=== PATIENT | male | born 1990 ===

== ENCOUNTER 2020-10-21 09:18 | Outpatient (CLI) | payer OTHER | END 2020-10-21 09:19 | disposition home or self-care (01) | LOC: BICULT 09:18 | PROVIDERS: ATTEND Family Medicine | DX: R10.11 Right upper quadrant pain (principal); K80.10 Calculus of gallbladder with chronic cholecystitis without obstruction; K82.8 Other specified diseases of gallbladder | CPT/HCPCS: 76705 ==

== ENCOUNTER 2021-01-19 09:55 | Day surgery (SDC) | payer OTHER ==
[2021-01-15 13:41] VITALS: BMI 31.4
[~2021-01-19 09:55] MED LIST: Acetaminophen 500 MG TAB ONE
[2021-01-19] MEDS ORDERED: Ketorolac Tromethamine 30 MG/ML VIAL ONE (10:11)
[2021-01-19] MEDS ORDERED: ceFAZolin 2 GM/DEX 5% 100 ML BAG ONE (10:11)
[2021-01-19] MEDS ORDERED: Midazolam HCl 2 mg/2 ml Vial ONE (12:20)
[2021-01-19] MEDS ORDERED: Lidocaine 1% w/Epinephrine 1:100K 20 ML VIAL ONE (13:32)
[2021-01-19] MEDS ORDERED: Bupivacaine PF 0.5% 30 ML VIAL ONE (13:32)
[2021-01-19] MEDS ORDERED: Ketamine 50 MG/ML (10ML VIAL) ONE (14:06)
[2021-01-19] MEDS ORDERED: Fentanyl 100 MCG/2 ML VIAL ONE ×3 (14:06→17:51)
[2021-01-19] MEDS ORDERED: Ondansetron PF 4 MG/2 ML Vial ONE (14:14)
[2021-01-19] MEDS ORDERED: Dexamethasone 20 MG/5 ML VIAL ONE (14:14)
[2021-01-19] MEDS ORDERED: Rocuronium Bromide 10 MG/ML (10ML VIAL) ONE (14:14)
[2021-01-19] MEDS ORDERED: Glycopyrrolate 0.2 MG/ML 5 ML SYRINGE ONE (14:14)
[2021-01-19] MEDS ORDERED: Lidocaine 1% PF 5 ML VIAL ONE (14:14)
[2021-01-19] MEDS ORDERED: PROPOFOL 200 MG/20 ML VIAL ONE (14:14)
[2021-01-19] MEDS ORDERED: HYDROcodone/Acetaminophen 5/325 mg Tablet ONE ×2 (18:20→18:21)
== END 2021-01-19 19:05 ==
LOC: EEVIPCON 09:55 → SDC 09:55
PROVIDERS: ATTEND Specialist
PROC: 0FT44ZZ Resection of Gallbladder, Percutaneous Endoscopic Approach (ICD-10-PCS; principal; 2021-01-19)
DX: K80.10 Calculus of gallbladder with chronic cholecystitis without obstruction (principal); F31.9 Bipolar disorder, unspecified; Z79.899 Other long term (current) drug therapy
CPT/HCPCS: 88304; C1713; C1776; J1100; J1885; J2250; J2405; J2704; J3010; S0020